=== PATIENT | female | born 1985 | race Caucasian/White ===

== ENCOUNTER 2020-08-02 08:25 | Emergency (ER) | payer OTHER ==
--- NOTE | 2020-08-02 08:29 | ED Physician Documentation ---
PD HPI ABD PAIN - Stated complaint Stated Complaint: ABD PX/NAUSIA - History obtained from History obtained from: Patient - History of Present Illness Timing - onset: How many days ago (2) Timing - duration: Days (2) Timing - details: Gradual onset, Still present (worse this morning, with now nausea and dry heaving), Constant, Waxing and waning Quality: Cramping, Aching, Pain Location: RUQ, Epigastric Radiation: Right flank (today). No: Chest, Lower back Improved by: Eating (has improved with eating for few minutes, but not consistent), Other (last BM was Wednesday (4 days ago)). No: Vomiting Worsened by: No: Eating Associated symptoms: Nausea, Constipation (last BM 4 days ago), Loss of appetite. No: Fever, Diarrhea, Dysuria, Chest pain Similar symptoms before: Has not had sx before Recently seen: Not recently seen Review of Systems Constitutional: denies: Fever, Chills Nose: denies: Rhinorrhea / runny nose, Congestion Throat: denies: Sore throat Respiratory: denies: Cough GI: reports: Abdominal Pain, Nausea, Vomiting (dry heaving this morning), Constipation. denies: Diarrhea : reports: Dysuria (had frequency and some dysuria early this week, but then improved after cranberry juice for a day. No current dysuria. Having RUQ/flank pain today.) Skin: denies: Rash, Lesions Neurologic: reports: Generalized weakness PD PAST MEDICAL HISTORY - Past Medical History Past Medical History: No - Present Medications Home Medications: Ambulatory Orders Medication Instructions Recorded Confirmed Ondansetron Odt [Zofran] 4 mg TL Q6H PRN #10 tablet 08/02/20 cephALEXin [Keflex] 500 mg PO TID #20 cap 08/02/20 - Allergies Allergies/Adverse Reactions: Allergies Allergy/AdvReac Type Severity Reaction Status Date / Time No Known Drug Allergies Allergy Verified 08/02/20 08:53 PD ED PE NORMAL - Vitals Vital signs reviewed: Yes - General General: Alert and oriented X 3, No acute distress, Well developed/nourished - HEENT HEENT: Moist mucous membranes, Pharynx benign - Neck Neck: Supple, no meningeal sign, No adenopathy - Cardiac Cardiac: RRR, No murmur - Respiratory Respiratory: Clear bilaterally - Abdomen Abdomen: Soft, Non distended, No organomegaly, Other (RUQ tender with some guarding, no percussion nor rebound tenderness. Bowel sounds somewhat diminished. ) - Female Female : Deferred - Rectal Rectal: Deferred - Back Back: No CVA TTP - Derm Derm: Normal color, Warm and dry, No rash - Extremities Extremities: No tenderness to palpate, No edema, No calf tenderness / cord - Neuro Neuro: Alert and oriented X 3, No motor deficit, Normal speech Eye Opening: Spontaneous Motor: Obeys Commands Verbal: Oriented GCS Score: 15 Results - Vitals Vitals: Vital Signs - 24 hr 08/02/20 08/02/20 08:47 10:06 Temperature 98.0 C H Heart Rate 105 H 91 Respiratory 18 16 Rate Blood Pressure 128/80 122/78 O2 Saturation 97 95 Oxygen O2 Source Room air - Labs Labs: Laboratory Tests 08/02/20 08/02/20 08/02/20 08:58 08:58 08:58 WBC 11.9 H RBC 4.52 Hgb 14.0 Hct 41.4 MCV 91.6 MCH 31.0 MCHC 33.8 RDW 12.8 Plt Count 344 MPV 9.2 Neut # (Auto) 8.8 H Lymph # (Auto) 1.8 [place] # (Auto) 1.0 Eos # (Auto) 0.1 Baso # (Auto) 0.1 Absolute Nucleated RBC 0.00 Nucleated RBC % 0.0 Sodium 141 Potassium 4.2 Chloride 101 Carbon Dioxide 27 Anion Gap 13.0 BUN 11 Creatinine 0.8 Estimated GFR (MDRD) 83 L Glucose 104 H Calcium 9.4 Total Bilirubin 0.8 AST 16 ALT 21 Alkaline Phosphatase 63 Total Protein 8.2 Albumin 4.5 Globulin 3.7 Albumin/Globulin Ratio 1.2 Lipase 23 Urine Color YELLOW Urine Clarity CLOUDY Urine pH 7.0 Ur Specific [place] 1.020 Urine Protein 100 H Urine Glucose (UA) NEGATIVE Urine Ketones NEGATIVE Urine Occult Blood MODERATE H Urine Nitrite NEGATIVE Urine Bilirubin NEGATIVE Urine Urobilinogen 0.2 (NORMAL) Ur Leukocyte Esterase MODERATE H Urine RBC TNTC H Urine WBC >25 H Ur Squamous Epith Cells FEW Squamous Urine Bacteria Moderate H Ur Microscopic Review INDICATED Urine Culture Comments INDICATED Urine HCG, Qual NEGATIVE - Rads (name of study) RUQ abd U/S Radiology: Prelim report reviewed (GB is normal. Some right renal pelviectasis. ), See rad report PD MEDICAL DECISION MAKING - ED course Complexity details: re-evaluated patient (feeling almost total pain cessation with fluids/meds here. ), considered differential (pain is RUQ and right flank. Mild dysuria last week. Will get labs/ US to eval for GB and kidney. ), d/w patient Departure - Departure Disposition: 01 Home, Self Care Clinical Impression: Right sided abdominal pain UTI (urinary tract infection) Qualifiers: Urinary tract infection type: acute pyelonephritis Qualified Code(s): N10 - Acute pyelonephritis Condition: Stable Record reviewed to determine appropriate education?: Yes Instructions: ED UTI Cystitis Female Prescriptions: cephALEXin [Keflex] 500 mg PO TID #20 cap Ondansetron Odt [Zofran] 4 mg TL Q6H PRN #10 tablet PRN Reason: Nausea / Vomiting Comments: Stay well-hydrated. Your blood tests and ultrasound do not show any signs of gallbladder pancreas or liver problems. There was some mild swelling of the right kidney and your urine does look like signs of infection so does sound like a kidney infection/urinary tract. We will treat this with cephalexin antibiotic. The urine culture should result in a couple of days and will call you if we need to modify the treatment based on that. Otherwise stay well-hydrated and use Tylenol or ibuprofen as needed for pains and ondansetron for nausea. I would anticipate improvement over the next 2 to 3 days and resolution by 3 to 5 days. Recheck if not better in that timeframe. Return if worse. Discharge Date/Time: 08/02/20 11:20
[2020-08-02] MEDS ORDERED: KETOROLAC 15 MG/ML VIAL IVP STA (08:50)
[2020-08-02] MEDS ORDERED: ONDANSETRON 4 MG/2 ML VIAL IVP STA (08:50)
[2020-08-02] MEDS ORDERED: FAMOTIDINE 20 MG/2 ML VIAL IVP STA (08:51)
[2020-08-02] MEDS ORDERED: MAG HYDROX/AL HYDROX/SIMETH 30 ML UDC PO STA (08:51)
[2020-08-02 09:04] LABS: BASOPHILS # (AUTO) 0.1 10^3/uL (0.0-0.1); BASOPHILS % (AUTO) 0.5 %; EOSINOPHILS # (AUTO) 0.1 10^3/uL (0.0-0.7); EOSINOPHILS % (AUTO) 0.8 %; HCT - HEMATOCRIT 41.4 % (37.0-47.0); LYMPHOCYTES # (AUTO) 1.8 10^3/uL (1.5-3.5); LYMPHOCYTES % (AUTO) 15.5 %; MEAN CORPUSCULAR HGB CONC 33.8 g/dL (32.0-36.0); MEAN CORPUSCULAR VOLUME 91.6 fL (81.0-99.0); MEAN PLATELET VOLUME 9.2 fL (7.9-10.8); MONOCYTES % (AUTO) 8.4 %; NEUTROPHILS # (AUTO) 8.8 10^3/uL (1.5-6.6); NEUTROPHILS % (AUTO) 74.5 %; PLT - PLATELET COUNT 344 10^3/uL (130-450); RED BLOOD COUNT 4.52 10^6/uL (4.20-5.40); RED CELL DISTRIBUTION WIDTH 12.8 % (12.0-15.0); WHITE BLOOD COUNT 11.9 x10^3/uL (4.8-10.8)
[2020-08-02 09:05] LABS: BILIRUBIN,URINE NEGATIVE (NEGATIVE); GLUCOSE, URINE (UA) NEGATIVE (NEGATIVE); KETONES,URINE (UA) NEGATIVE (NEGATIVE); LEUKOCYTE ESTERASE, URINE MODERATE (NEGATIVE); NITRITE,URINE NEGATIVE (NEGATIVE); OCCULT BLOOD,URINE MODERATE (NEGATIVE); PROTEIN,URINE 100 mg/dL (NEGATIVE); UROBILINOGEN,URINE 0.2 (NORMAL) E.U./dL (NORMAL)
[2020-08-02 09:07] LABS: CLARITY,URINE CLOUDY (CLEAR); HCG UR QUAL NEGATIVE
[2020-08-02 09:16] LABS: ALBUMIN 4.5 g/dL (3.2-5.5); ALBUMIN/GLOBULIN RATIO 1.2 (1.0-2.2); BILIRUBIN,TOTAL 0.8 mg/dL (0.2-1.0); CALCIUM 9.4 mg/dL (8.5-10.3); CREATININE 0.8 mg/dL (0.4-1.0); POTASSIUM 4.2 mmol/L (3.5-5.0); TOTAL PROTEIN 8.2 g/dL (6.7-8.2)
[2020-08-02 09:19] LABS: BACTERIA,URINE Moderate /HPF (None Seen); RBC,URINE TNTC /HPF (0-5); SQUAMOUS EPITHELIAL CELL,UR FEW Squamous (<= Few); WBC,URINE >25 /HPF (0-5)
[2020-08-02] MEDS ORDERED: cefTRIAXone 1 GM VIAL IVP STA (09:51)
[2020-08-02 10:07] VITALS: BP 122/78
--- NOTE | 2020-08-02 11:32 | Ultrasound Report ---
PROCEDURE: Abdomen Limited INDICATIONS: RUQ pain for 2 days, worsening TECHNIQUE: Real-time focused scanning was performed of the abdomen, with image documentation. COMPARISON: Not available. FINDINGS: Liver demonstrates normal size and echotexture. The gallbladder is normal. No gallstones, gallbladder wall thickening or pericholecystic fluid collec tion. No sonographic Oconnell sign. Visualized pancreas is normal. Common bile duct measures 3.6 mm in diameter. Right kidney is normal size and echotexture. Trace right renal pelviectasis. IMPRESSION: 1. Trace right renal pelviectasis. Otherwise normal exam. Reviewed by: Gisselle Swanson MD on 08/02/2020 11:31 AM PDT Approved by: Gisselle Swanson MD on 08/02/2020 11:31 AM PDT Station ID: [id number]
== END 2020-08-02 11:20 | disposition home or self-care (01) ==
LOC: ED 08:25
DX: N10 Acute pyelonephritis (principal)
CPT/HCPCS: 36415; 76705; 80053; 81001; 81025; 83690; 85025; 87077; 87086; 87181; 96374; 96375; 99284; 99285; A9270; 81003

== ENCOUNTER 2021-03-04 21:03 | Emergency (ER) | payer OTHER ==
--- NOTE | 2021-03-04 23:30 | ED Physician Documentation ---
PD HPI MHE - Stated complaint Stated Complaint: MHE - Chief complaint Chief Complaint: MHE - History obtained from History obtained from: Patient - Additional information Additional information: Patient comes emergency department for chief complaint of feeling depressed and anxious. She states she is not suicidal. The thought of suicide crosses her mind occasionally, but she states she has never seriously considered this and has too many things in her life worth living for 2 actually seriously contemplate this. Patient states that her depression and anxiety started with her first appointment and that it is always been at a steady level since. 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 The patient states that she would like to remedy this by switching to a different shift, and thinks that this is actually possibility. She states [place]. Patient is due for her other that some of the people that she is stuck on shift with right now, she actually likes her job a lot and does not want to get out of the [place]. She has never been on any medication for an for depression or anxiety. No other complaints at this time. She states she is mainly here because her command made her come in. Review of Systems Ten Systems: 10 systems reviewed and negative Constitutional: reports: Reviewed and negative Eyes: reports: Reviewed and negative Ears: reports: Reviewed and negative Nose: reports: Reviewed and negative Throat: reports: Reviewed and negative Cardiac: reports: Reviewed and negative Respiratory: reports: Reviewed and negative GI: reports: Reviewed and negative : reports: Reviewed and negative Skin: reports: Reviewed and negative Musculoskeletal: reports: Reviewed and negative Neurologic: reports: Reviewed and negative Psychiatric: reports: Depressed, Anxiety. denies: Suicidal Endocrine: reports: Reviewed and negative Immunocompromised: reports: Reviewed and negative PD PAST MEDICAL HISTORY - Past Medical History Past Medical History: Yes - Present Medications Home Medications: Ambulatory Orders Medication Instructions Recorded Confirmed No Known Home Medications 03/04/21 03/04/21 - Allergies Allergies/Adverse Reactions: Allergies Allergy/AdvReac Type Severity Reaction Status Date / Time No Known Drug Allergies Allergy Verified 03/04/21 21:07 - Social History Does the pt smoke?: No Smoking Status: Never smoker Does the pt drink ETOH?: No Does the pt have substance abuse?: No - Immunizations Immunizations are current?: Yes PD ED PE NORMAL - Vitals Vital signs reviewed: Yes - General General: Alert and oriented X 3, No acute distress, Well developed/nourished - HEENT HEENT: Atraumatic, PERRL, EOMI, Moist mucous membranes - Neck Neck: Supple, no meningeal sign - Cardiac Cardiac: RRR, No murmur, Strong equal pulses - Respiratory Respiratory: No respiratory distress, Clear bilaterally - Abdomen Abdomen: Soft, Non tender, Non distended - Derm Derm: Normal color, Warm and dry, No rash - Extremities Extremities: No deformity, No edema, No calf tenderness / cord - Neuro Neuro: Alert and oriented X 3, vmware engineer 2-12 intact, No motor deficit, No sensory deficit, Normal speech - Psych Psych: Normal mood, Normal affect Results - Vitals Vitals: Vital Signs - 24 hr 03/04/21 03/04/21 21:08 23:38 Temperature 36.5 C Heart Rate 83 89 Respiratory 16 16 Rate Blood Pressure 138/88 H 115/75 O2 Saturation 99 96 Oxygen O2 Source Room air PD MEDICAL DECISION MAKING - ED course Complexity details: considered differential, d/w patient ED course: NoneThe patient was not suicidal, and had a very clear-cut as far as how she would manage both the depression and anxiety, as well as the workplace stresses that were getting her down. I did not feel that she needs to stay. The patient is not suicidal and she is well connected as an outpatient with resources. We have discussed the usual indications for return. Departure - Departure Disposition: 01 Home, Self Care Clinical Impression: Anxiety Depression Qualifiers: Depression Type: major depressive disorder Major depression recurrence: recurre nt Active/Remission status: currently active Major depression episode severity: moderate Qualified Code(s): F33.1 - Major depressive disorder, recurrent, moderate Condition: Stable Instructions: ED Depression Comments: At this point in time, you are not actively suicidal, and have a plan [place]. Additionally, you have pointed out some changes that could be made to your work situation which are feasible and may help greatly. At this point in time, there is no reason to hold to involuntarily for inpatient treatment. However, if you begin to feel that you are a danger to yourself and that you are at risk of committing suicide, then please do not delay to get help. Otherwise, please continue [place] for the ongoing anxiety and depression. Discharge Date/Time: 03/04/21 23:39
[2021-03-04 23:39] VITALS: BP 115/75
== END 2021-03-04 23:39 | disposition home or self-care (01) ==
LOC: ED 21:03
DX: F33.1 Major depressive disorder, recurrent, moderate (principal); F41.9 Anxiety disorder, unspecified
CPT/HCPCS: 99281; 99282